=== PATIENT | male | born 1930 | race Caucasian/White ===

== ENCOUNTER → 2017-01-09 | Day surgery (SDC) | payer MEDICARE, OTHER ==
[~2017-01-09] VITALS: Ht 175.3 cm; Wt 63.5 kg
[~2017-01-09] MED LIST: 0.9% Sodium Chloride 1,000 ML IV PRN; ASPI325T32 PO; ATRV10T PO; LACT1CAP67 PO; OMEP20TA24 PO; Sodium Chloride LOK Flush 10 mL Syringe IV PRN; THIO300C PO; fentaNYL-PF 50 mCg/mL 2 mL Inj IVPUSH PRN; vitamin b-12 PO
[2017-01-09 13:09] VITALS: BP 155/73; PULSE 82; O2SAT 97
[2017-01-09 15:09] VITALS: BP 176/72; PULSE 78; RESP 16; O2SAT 99
--- NOTE | 2017-01-09 15:34 | ENDO ---
[address] [address] ENDOSCOPY PROCEDURE PATIENT: CED CLOUD : 1930 MR#: [id number] ADMIT: 01/09/2017 JOB ID: [id number] DATE OF SERVICE: 01/09/2017 PRIMARY PROVIDER: Duncan Venegas MD. PROCEDURE: 1. Esophagogastroduodenoscopy with biopsies. 2. Colonoscopy with hot snare polypectomy and random colon biopsies. INDICATIONS: An 86-year-old male with symptoms of unexplained weight loss and diarrhea, along with early satiety. EQUIPMENT: GIF-H180J and a PCF-H190DL. SEDATION: None. He did receive a lidocaine gargle. BOWEL PREPARATION: Fair. PROCEDURE INFORMATION: After the risks and benefits were explained, written and verbal informed consent was obtained. The patient was brought into the endoscopy suite and placed into the left lateral decubitus position. The scope was introduced into the mouth through the bite block, and advanced to the second portion of the duodenum. The scope was slowly withdrawn to carefully examine the mucosa for any defects or lesions. Retroflexed views were accomplished in the stomach. The stomach was decompressed. The scope removed from the patient who tolerated the procedure well. The patient was then turned around. A digital rectal examination accomplished. Mild internal hemorrhoids noted. The scope was then introduced into the rectum and advanced to the cecum as identified by the appendiceal orifice and ileocecal valve. The scope was advanced into the terminal ileum. We then slowly withdrew to carefully examine the mucosa for any defects or lesions. Multiple direct views were made through the dentate line for exclusion of pathology. The colon was decompressed. The scope removed from the patient who tolerated the procedure well. FINDINGS: 1. Duodenum: Random duodenal biopsies from D2 were acquired for exclusion of sprue. In the bulb, a polyp perhaps about 4 mm in size was cold biopsied. This precipitated significant oozing of blood, and we monitored this area for more than 5 minutes to ensure spontaneous hemostasis had occurred. 2. Stomach: The patient had a diffuse nonspecific gastropathy. However, no ulcers, no mass lesions, no outlet obstruction. Random biopsy was taken for exclusion of helicobacter or other pathology. Retroflexed views were unremarkable. 3. Esophagus: The squamocolumnar junction correlated with the top of the gastric folds. The GEJ was at about 42 cm from the incisors. There was a small erosion just distal to the GE junction on the cardia side. This area was targeted for biopsy. A sliding hiatal hernia was noted. Otherwise, no significant pathology in the esophagus. 4. Terminal ileum: This appeared visually normal. 5. Colon: No macroscopic colitis throughout. Random colon biopsies were taken for exclusion of microscopic disease. There was fairly extensive diverticulosis in the left colon. At the rectosigmoid region, there was an approximately 6-7 mm, sessile polyp removed with hot snare. ENDOSCOPIC DIAGNOSES: 1. Proximal duodenal polyps. 2. Gastropathy. 3. Hiatal hernia. 4. Gastroesophageal junction/cardia inflammation. 5. Diverticulosis. 6. Hemorrhoids. 7. Colon polyp. RECOMMENDATIONS: 1. Await histopathology. 2. Follow up in GI clinic within the next couple of weeks with Dr. Tray Leon.
--- NOTE | 2017-01-15 15:04 | PATH ---
SURGICAL PATHOLOGY Attending Physician:Edu Ashley CASE STATUS: Signed Out PATIENT NAME: CED CLOUD PID: [id number] : 1930 DATE COLLECTED:01/09/2017 00:00 SPECIMEN: 1: Duodenum, Biopsy 2: Duodenum, Biopsy 3: Gastric, Biopsy 4: Esophagus, Biopsy 5: Colon, Biopsy 6: Colon, Polyp CLINICAL HISTORY: 1). RANDOM DUODENUM 2). DUODENAL POLYP 3). GASTRIC BIOPSY RULE OUT H PYLORI 4). GASTROESOPHAGEAL JUNCTION BIOPSY 5). RANDOM COLON BIOPSY 6). RECTAL SIGMOID POLYP X 1 FINAL DIAGNOSIS: 1. Duodenum, Biopsy: Duodenal mucosa with no diagnostic abnormality. Negative for active inflammation, features of sprue, dysplasia or malignancy. 2. Duodenal Polyp, Biopsy: Duodenal mucosa with gastric heterotopia. Negative for dysplasia or malignancy. 3. Stomach, Biopsy: Gastric antral mucosa with mild chronic gastritis. Helicobacter organisms not identified. Negative for intestinal metaplasia, dysplasia or malignancy. 4. Gastroesophageal Junction, Biopsy: Columnar mucosa with chronic mild active inflammation. Negative for intestinal metaplasia, dysplasia or malignancy. 5. Colon, Biopsy: Minimally active colitis. Negative for granulomata, dysplasia or malignancy. 6. Rectosigmoid Poly, Biopsy: Hyperplastic polyp. ICD10: R63.4 R19.7 K63.5 NOTE: In the random colon biopsy (part 5) the findings raise a differential diagnosis including infection, drug/toxin-induced injury, and in the appropriate clinical setting, idiopathic inflammatory bowel disease. GROSS DESCRIPTION: The specimen is received in six formalin filled containers labeled with the patient's name. 1). The specimen is labeled "duodenum" and consists of 2 portions of tissue which aggregate to 0.2 x 0.2 x 0.2 CM. The specimen is entirely submitted in cassette 1A. 2). The specimen is labeled "duodenum polyp" and consists of a 0.3 x 0.2 x 0.2 CM portion of tissue which is entirely submitted in cassette 2A. 3). The specimen is labeled "gastric" and consists of a 0.2 x 0.2 x 0.2 CM portion of tissue which is entirely submitted in cassette 3A. 4). The specimen is labeled " GEJ " and consists of an extremely tiny less than 0.1 CM portion of tissue which is entirely submitted in cassette 4A. 5). The specimen is labeled "random colon" and consists of a 0.2 x 0.2 x 0.2 CM portion of tissue which is entirely submitted in cassette 5A. 6). The specimen is labeled "rectal sigmoid polyp" and consists of a 0.4 x 0.4 x 0.4 CM portion of tissue which is entirely submitted in cassette 6A. 01/10/2017AR ICD-9 CODES: CPT CODES: 1: 58603 2: 32357 3: 15705 4: 74810 5: 20971 6: 60778 Electronically Signed Out Elliot Rinaldi MD, Ph.D. [facility] [address] [place] [address], [place] [address] Technical component performed at [facility], [facility] [address], [place], [address]
== END | disposition home or self-care (01) ==
LOC: END 00:16
PROVIDERS: ATTEND Internal Medicine Gastroenterology
DX: R19.7 Diarrhea, unspecified (principal); K57.30 Diverticulosis of large intestine without perforation or abscess without bleeding; K62.1 Rectal polyp; K21.9 Gastro-esophageal reflux disease without esophagitis; K31.7 Polyp of stomach and duodenum; K29.50 Unspecified chronic gastritis without bleeding; K44.9 Diaphragmatic hernia without obstruction or gangrene; K64.8 Other hemorrhoids; R63.4 Abnormal weight loss; Z86.73 Personal history of transient ischemic attack (TIA), and cerebral infarction without residual deficits; G62.9 Polyneuropathy, unspecified; N40.0 Benign prostatic hyperplasia without lower urinary tract symptoms; Z79.82 Long term (current) use of aspirin
CPT/HCPCS: 43239; 45380; 99153; G0500; J7030